=== PATIENT | male | born 1975 | race Caucasian/White ===

== ENCOUNTER 2023-08-06 09:41 | Outpatient (AMB) | payer OTHER, SELFPAY ==
--- NOTE | 2023-08-06 10:30 | AM.OFFWIN_ITS ---
Intake Vital Signs 08/06/23 10:34 Height 5 ft 11 in Weight 253 lb BMI 35.3 BP 130/70 Blood Pressure Location Lt brachial Position Sitting Pulse 83 Pulse Source Pulse Oximeter Temp 98.2 F Temp Source Oral Pulse Oximetry (%) 98 Oxygen Delivery Method Room Air Intake Visit Reasons: [employer], congestion, body ache, cough ([phone]) Intake Note: Pt is here today c/o nasal congestion, bodyache and a cough x5days Patient Tobacco Use Status: Current everyday Tobacco user Allergies No Known Allergies Allergy (Unverified 08/06/23 10:30) Do you need a note to return to daycare/school/sports/work: No HPI HPI Comments History of Present Illness Details 47-year-old male that presents for cough congestion fever and sore throat. Symptoms been present for 3-4 days. Thinks he might have the flu [facility] Social History Patient Tobacco Use Status: Current everyday Tobacco user Review of Systems ENT Reports nasal congestion, Reports nasal discharge and Reports sore throat Physical Exam Vital Signs: Last Vital Signs Temp 98.2 F 08/06/23 10:34 Pulse 83 08/06/23 10:34 BP 130/70 08/06/23 10:34 Pulse Ox 98 08/06/23 10:34 Oxygen Delivery Method Room Air 08/06/23 10:34 BMI result Body Mass Index 35.3 Const General: cooperative, no acute distress and alert Orientation/consciousness: patient oriented x3 Limitations: no limitations HEENT Other: Mild erythema in the posterior pharynx tonsils 2+ bilaterally Head: Yes normal to inspection Ears: hearing grossly normal bilaterally and external ears normal General nose exam: Normal external nose present Eyes General: appearance normal, both eyes and all related structures Neck Neck: Yes normal visual inspection Chest Chest palpation & inspection: normal inspection of the chest Resp Effort & Inspection: normal respiratory effort, able to speak in complete sentences and no audible wheezes Auscultation: clear to auscultation bilaterally Cardio Rate: regular rate Rhythm: regular rhythm GI Inspection: Yes normal to inspection Palpation (GI): Soft to palpation and nontender Skin General skin exam: no rashes or lesions noted Neuro General: patient oriented x3 Psych Appearance: grossly normal Mental Status: mental status grossly normal Speech and movement: Normal speech and movement present Affect: normal affect Attitude: cooperative Thought process: Normal thought process present Thought content: Normal thought content present Results AMB Rapid Strep AMB Rapid Strep Negative Last Edit by PEMA Ontiveros on 08/06/23 11: 01 Assessment & Plan Assessment & Plan (1) Viral illness: Code(s): B34.9 - Viral infection, unspecified Plan: Symptoms consistent with viral illness. Given mild erythema posterior pharynx will swab. For strep. Will COVID fluid RSV swab. Discharge instructions, follow up and treatment are discussed with patient in my usual fashion. Alternatives in treatment are also discussed. The patient will return for worsening symptoms or as needed. Advised that any labs/imaging ordered will be followed up on and contact made if further treatment needed. Counseled that patient's condition may require further evaluation and/or treatment. Symptoms of concern for worsening disorder discussed in detail in my customary manner. Patient does verbalize understanding of the plan, there are no apparent barriers to communication. The patient is given the opportunity to ask questions and have them answered to his/her satisfaction Orders: Orders SARS-CoV2/FLU/RSV Today R09.89 - Other specified symptoms and signs involving the circulatory and respiratory systems AMB Rapid Strep Screen Today Z13.9 - Encounter for screening, unspecified Coding Level of Care Code New Pt Level 3 (53150) Diagnoses Viral illness B34.9
[2023-08-06 10:34] VITALS: BP 130/70; PULSE 83; TEMP 36.8; O2SAT 98; BMI 35.3
== END 2023-08-06 11:16 | disposition home or self-care (01) ==
PROVIDERS: PCP Family Medicine; Visit Provider Physician Assistant
DX: B34.9 Viral infection, unspecified (principal); J02.9 Acute pharyngitis, unspecified
CPT/HCPCS: 87880; 99203

== ENCOUNTER 2023-08-06 10:55 | Outpatient (REF) | payer OTHER, SELFPAY ==
[2023-08-06 13:39] LABS: Influenza A PCR NEGATIVE (Negative); Influenza B PCR NEGATIVE (Negative); Resp Syncy Virus RNA Qual PCR NEGATIVE (Negative); SARS COV2 PCR INHOUSE NEGATIVE (Negative)
== END 2023-08-06 10:56 | disposition home or self-care (01) ==
LOC: HO.LAB 10:55
PROVIDERS: Visit Provider Physician Assistant
DX: Z11.52 Encounter for screening for COVID-19 (principal); Z20.822 Contact with and (suspected) exposure to COVID-19; R09.89 Other specified symptoms and signs involving the circulatory and respiratory systems
CPT/HCPCS: 0241U